=== PATIENT | male | born 1980 | race Caucasian/White ===

== ENCOUNTER → 2016-11-25 | Outpatient (CLI) | payer OTHER ==
[~2016-11-25] MED LIST: BENTYL20 MG PO; FAMOTIDINE PO; FLAGYL PO; LORTAB 10-5001 EACH PO; LORTAB 7.5-5001 TAB PO; MULTI VITAMIN1 EACH PO; NO MEDICATIONS; VIT B-12 PO; VITAMIN C100 MG PO
--- NOTE | ~2016-11-25 | MR17 ---
[facility] A Service of [facility] RADIOLOGY TEXT RESULTS PATIENT: CAROL GARCIA LOCATION: [facility] : 78 UNIT #: [id number] AGE: [address]: Tomy Larson MD SEX: M ORDER DR: [id number] [facility] [address] [place], [place] [address] [id number] MR#: [id number] Acc #: [id number] NAME: CAROL GARCIA : 1980 SEX: M STUDY DATE/TIME: 11/25/2016 15:23 UNIT: [facility] ROOM: STUDY DESCRIPTION: MR Brain WWo Contrast Attending Physician: Tomy Larson M.D. Referring Physician: Tomy Larson M.D. Ordering Physician: Tomy Larson M.D. Primary Care Physician: Primary Care Physician No MRI CENTER REPORT This report is preliminary unless electronic signature is present. EXAM MRI with and without HISTORY Facial numbness for 2 months per patient. History of rectal cancer and colon cancer stage IV in 2013. No surgery. COMMENT MRI of the brain was performed prior to and following intravenous administration of 20 mL of MultiHance. There is no abnormally restricted diffusion. Midline structures are unremarkable. No extraaxial fluid collection. Minimal fluid or inflammatory change right mastoid tip. The visualized paranasal sinuses are clear. The major intracranial flow voids are maintained. There is mild periventricular white matter signal abnormality of uncertain further significance clinically. Please correlate for small vessel disease risk factors. This could be related to chemotherapy. There is no intracranial mass effect. There is no MRI evidence for intracranial hemorrhage. Following contrast administration, there is no pathologic intracranial enhancement. There is nothing to suggest intracranial metastatic disease. IMPRESSION 1. No evidence for intracranial metastatic disease. 2. Mild nonspecific periventricular white matter signal abnormality. Dictated by... Sally Tadeo M.D. THIS IS AN ELECTRONICALLY VERIFIED REPORT [facility] A Service of [facility] RADIOLOGY TEXT RESULTS PATIENT: CAROL GARCIA LOCATION: [facility] : 79 UNIT #: [id number] AGE: [address]: Tomy Larson MD SEX: M ORDER DR: Sally Tadeo M.D. at 11/26/2016 3:48 PM GEO/atilio TD: 11/26/2016 14:15 JOB #: [id number] MRI CENTER REPORT Page 1 of 1 COPY
== END | disposition home or self-care (01) ==
LOC: CMRI 13:44
DX: C20 Malignant neoplasm of rectum (principal); G93.89 Other specified disorders of brain
CPT/HCPCS: 70553; A9577